=== PATIENT | female | born 1995 | race Caucasian/White ===

== ENCOUNTER 2017-05-06 10:49 | Emergency (ER) | payer BC ==
[2017-05-06 11:00] VITALS: BP 108/72
--- NOTE | 2017-05-06 11:27 | UC ---
Complaint Female HPI - HPI Summary HPI Summary: Pt presents with c/o sudden onset of lleft labial swelling s/p sexual intercourse last night. Pt reports that she had intercourse with her boyfriend last night, no comdom used, pt uses nuva ring, and woke this morning with left labial swelling, non tender. Pt denies pain during intercourse and reports sex was consenual. Pt does report that she shaves her pubic hair as does her boyfriend. - History Of Current Complaint Chief Complaint: UCGU Stated Complaint: PERSONAL Time Seen by Provider: 05/06/17 10:53 Hx Obtained From: Patient Hx Last Menstrual Period: "Like, two weeks ago, I believe." ?: No Onset/Duration: Sudden Onset, Lasting Hours, Still Present Timing: Constant Severity Initially: Mild Aggravating Factor(s): Nothing Alleviating Factor(s): Nothing Associated Signs And Symptoms: Positive: Genital Swelling - Risk Factors Ectopic Risk Factor: Negative Ovarian Torsion Risk Factor: Reproductive Age - Allergies/Home Medications Allergies/Adverse Reactions: Allergies Allergy/AdvReac Type Severity Reaction Status Date / Time No Known Allergies Allergy Verified 05/06/17 10:56 PMH/Surg Hx/FS Hx/Imm Hx Previously Healthy: Yes - Surgical History Surgical History: None - Family History Known Family History: Positive: Cardiac Disease - Social History Occupation: Student - [employer] Lives: Dormitory/Roommates Alcohol Use: Occasionally Substance Use Type: None Smoking Status (MU): Never Smoked Tobacco Have You Smoked in the Last Year: No - Immunization History Most Recent Influenza Vaccination: Not the 2016/2017 Season Review of Systems Constitutional: Negative Skin: Other - swelling Eyes: Negative ENT: Negative Respiratory: Negative Cardiovascular: Negative Gastrointestinal: Negative Genitourinary: Other - labial [id number] Motor: Negative Neurovascular: Negative Musculoskeletal: Negative Neurological: Negative Psychological: Negative Is Patient Immunocompromised?: No All Other Systems Reviewed And Are Negative: Yes Physical Exam Triage Information Reviewed: Yes Appearance: Well-Appearing Vital Signs: Initial Vital Signs Temp 98.6 F 05/06/17 10:54 Pulse 88 05/06/17 10:54 Resp 16 05/06/17 10:54 BP 108/72 05/06/17 10:54 Pulse Ox 100 05/06/17 10:54 Vital Signs Reviewed: Yes Eye Exam: Normal ENT Exam: Normal Dental Exam: Normal Respiratory Exam: Normal Cardiovascular Exam: Normal Abdomen Description: Positive: Other: - outer genitals, mild non erythematous swelling to left labia. No bruising, no lacerations or skin tears. no sores or chancres., no vaginal discahrge, no malodorous discharge Musculoskeletal Exam: Normal Neurological Exam: Normal Psychological Exam: Normal Skin Exam: Other - mild swelling, non erythematous, no bruising to left labia Complaint Female Dx - Differential Dx/Diagnosis Differential Diagnosis/HQI/PQRI: Sexually Transmitted Disease, Other - tinea barabae, skin abrasion, sexual assault Provider Diagnoses: genital swelling, (friction?). skin irritation Discharge - Discharge Plan Condition: Stable Disposition: HOME Patient Education Materials: Contact Dermatitis (ED) Referrals: Non Staff,Doctor [Primary Care Provider] - If Needed Additional Instructions: Diagnosis: L98.9 Disorder of the skin and subcutaneous tissue, unspecified Please monitor for any signs or symptoms of worsening irritation or infection. Please follow up with your PCP or return to clinic as needed.
== END 2017-05-06 11:43 | disposition home or self-care (01) ==
LOC: UCCORT 10:49
DX: N90.89 Other specified noninflammatory disorders of vulva and perineum (principal); N89.8 Other specified noninflammatory disorders of vagina
CPT/HCPCS: 99211; G0463

== ENCOUNTER 2017-06-16 15:05 | Emergency (ER) | payer BC ==
[2017-06-16 15:45] VITALS: BP 115/68
--- NOTE | 2017-06-16 16:21 | UC ---
Headache HPI - HPI Summary HPI Summary: 22 year old female with SHER. HEADACHE "REALLY BAD" FOR 4 DAYS. NAUSEA AND FEELING DIZZY. NO RECALL OF HEAD INJURY. HAVING SINUS AND DENTAL PRESSURE. ALSO. HAS HAD HEADACHE ON AND OFF BUT NOT BAD THIS ONE. PT STATES SHE HAS MIXED UP HER NUVA RING , KEPT IT IN LONGER THAN SHE WAS SUPPOSED TO . UTD with vaccinations. No exposure to meningitis. No neck pain . [ End ] - History Of Current Complaint Chief Complaint: UCHeadache Stated Complaint: HEADACHE Time Seen by Provider: 06/16/17 15:52 Hx Obtained From: Patient Hx Last Menstrual Period: 05/19/17 Onset/Duration: Gradual Onset Onset Of Symptoms: Gradual Initially Headache Was: Initial Pain Scale(0-10)= - 4 Currently Pain Is: Current Pain Scale(0-10)= - 4 Timing: Constant Character: Dull Location of Headache: Diffuse, Frontal Aggravating Factor(s): Exertion, Position Change, Bright Lights Related History: Similar Episode/DX As: - last year - Allergies/Home Medications Allergies/Adverse Reactions: Allergies Allergy/AdvReac Type Severity Reaction Status Date / Time No Known Allergies Allergy Verified 05/06/17 10:56 PMH/Surg Hx/FS Hx/Imm Hx Previously Healthy: Yes - Surgical History Surgical History: None - Family History Known Family History: Positive: None, Cardiac Disease Negative: Seizure Disorder - Social History Occupation: Student Alcohol Use: Occasionally Substance Use Type: None Smoking Status (MU): Never Smoked Tobacco Have You Smoked in the Last Year: No - Immunization History Most Recent Influenza Vaccination: Not the 2016/2017 Season Review of Systems Constitutional: Fatigue Eyes: Photophobia ENT: Nasal Discharge, Sinus Congestion, Sinus Pain/Tenderness Is Patient Immunocompromised?: No All Other Systems Reviewed And Are Negative: Yes Physical Exam Triage Information Reviewed: Yes Appearance: Well-Appearing, Well-Nourished, Pain Distress - mild Vital Signs: Initial Vital Signs Temp 98.8 F 06/16/17 15:38 Pulse 90 06/16/17 15:38 Resp 18 06/16/17 15:38 BP 115/68 06/16/17 15:38 Pulse Ox 99 06/16/17 15:38 Vital Signs Reviewed: Yes Eye Exam: Normal ENT Exam: Normal ENT: Positive: Nasal congestion, TM dull, Sinus tenderness - frontal Left > right and maxillary L > R. Negative: Tonsillar swelling, Tonsillar exudate Dental Exam: Normal Neck exam: Normal Neck: Positive: Supple, Nontender, No Lymphadenopathy, Other: - neg kernig Respiratory Exam: Normal Respiratory: Positive: Chest non-tender, Lungs clear, Normal breath sounds Cardiovascular Exam: Normal Cardiovascular: Positive: RRR Abdominal Exam: Normal Musculoskeletal Exam: Normal Neurological Exam: Normal Psychological Exam: Normal Skin Exam: Normal Headache Course/Dx - Course Course Of Treatment: With the signifcant SHER above the eyes, the maxillary tenderness with tooth pain and previous sinus SHER and sinusitis last year without h/o migraine (she also declined toradol) will treat with bacterial sinusitis and discussed S/S of meningitis (she had neg KernigBrud) and if develops anything like that then go to ED she is aweare and agree - Differential Dx/Diagnosis Differential Diagnosis/HQI/PQRI: Meningitis, Sinus Headache, Tension Headache, Viral Syndrome Provider Diagnoses: Sinusitis with sinus headache Discharge - Discharge Plan Condition: Good Disposition: HOME Prescriptions: Amoxicillin/Clavulanate TAB* [Augmentin TAB 875*] 875 mg PO BID #20 tab Patient Education Materials: Sinusitis (ED), Acute Headache (ED) Referrals: Non Staff,Doctor [Primary Care Provider] - If Needed Additional Instructions: As we discussed please consider starting claritin and flonase as well as your antibiotic. If your symptoms worsen then seek medicl care.
== END 2017-06-16 16:30 | disposition home or self-care (01) ==
LOC: UCCORT 15:05
DX: J32.9 Chronic sinusitis, unspecified (principal); R51 Headache; R53.83 Other fatigue
CPT/HCPCS: 99212; G0463

== ENCOUNTER 2017-11-15 10:01 | Emergency (ER) | payer BC ==
[2017-11-15 10:31] VITALS: BP 103/56
--- NOTE | 2017-11-15 11:31 | UC ---
UC General HPI - HPI Summary HPI Summary: 22 yo female c/o last couple weeks of ongoing dysuria (hesitation, discomfort pre and post urination). Some freq / urgency but not overwhelming. Hx uti's, most recent last year. Hx vaginal yeast infection. Denies change in normal vaginal d/c. No abd pain. No back pain. No fever / chills. No rash. - History of Current Complaint Chief Complaint: UCGU Stated Complaint: URINARY Time Seen by Provider: 11/15/17 11:07 Hx Obtained From: Patient Hx Last Menstrual Period: "like, two or three weeks ago, maybe" Pain Intensity: 0 - Allergy/Home Medications Allergies/Adverse Reactions: Allergies Allergy/AdvReac Type Severity Reaction Status Date / Time No Known Allergies Allergy Verified 11/15/17 10:25 Home Medications: Home Medications Anxiety Medication 1 tab PO DAILY 11/15/17 [History Confirmed 11/15/17] Nuvaring 1 each VAGINAL SEE INSTRUCTIONS 11/15/17 [History Confirmed 11/15/17] PMH/Surg Hx/FS Hx/Imm Hx Previously Healthy: Yes - Surgical History Surgical History: None - Family History Known Family History: Positive: None, Cardiac Disease Negative: Seizure Disorder - Social History Alcohol Use: None Substance Use Type: None Smoking Status (MU): Never Smoked Tobacco Have You Smoked in the Last Year: No - Immunization History Most Recent Influenza Vaccination: Not the 2016/2017 Season Review of Systems Constitutional: Negative Skin: Negative Eyes: Negative ENT: Negative Respiratory: Negative Cardiovascular: Negative Gastrointestinal: Negative Genitourinary: Other - see hpi Motor: Negative Neurovascular: Negative Musculoskeletal: Negative Neurological: Negative Psychological: Negative Is Patient Immunocompromised?: No All Other Systems Reviewed And Are Negative: Yes Physical Exam Triage Information Reviewed: Yes Appearance: Well-Appearing, Well-Nourished Vital Signs: Initial Vital Signs Temp 98.2 F 11/15/17 10:24 Pulse 88 11/15/17 10:24 Resp 16 11/15/17 10:24 BP 103/56 11/15/17 10:24 Pulse Ox 98 11/15/17 10:24 Vital Signs Reviewed: Yes Eye Exam: Normal - grossly normal ENT Exam: Normal - detailed exam not done, grossly normal Neck exam: Normal - no c/o pain. Respiratory Exam: Normal - no tachypnea, no dyspnea. normal resp rate. Cardiovascular Exam: Normal - normal heart rate. No diaphoresis. No visible or reported rash. Abdominal Exam: Normal - Nontender, nondistended. No cvat. Musculoskeletal Exam: Normal - gait steady, moves x 4 ext's Neurological Exam: Normal - grossly nonfocal Psychological Exam: Normal - conversing easily and appropriately Skin Exam: Normal - no visible or reported rash Course/Dx - Course Course Of Treatment: Reviewed urine dip and ucg. Urine cx ordered d/t sx reported. Reviewed need for f/u pcp re 1+ blood. Will tx presumptively, based on previous hx. Rx diflucan as well, as needed for yeast vag d/c. Questions as posed answered to the best of my ability. - Differential Dx - Multi-Symptom Provider Diagnoses: cystitis / urethrititis Discharge - Sign-Out/Discharge Documenting (check all that apply): Discharge - Discharge Plan Condition: Stable Disposition: HOME Prescriptions: DOXYcycline CAP(*) [DOXYcycline 100MG CAP(*)] 100 mg PO BID #14 cap Fluconazole [Diflucan 150 MG (NF)] 150 mg PO DAILY #1 tab Patient Education Materials: Urinary Tract Infection in Women (ED), Hematuria ( ED) Referrals: Non Staff,Doctor [Primary Care Provider] - Additional Instructions: Follow up with your primary care physician, per routine. Recommend recheck upon returning home next month to make sure that the blood has resolved. Please seek medical attention for worse or new problems in the meantime. Drink plenty of water. - Billing Disposition and Condition Condition: STABLE Disposition: HOME
--- NOTE | 2017-11-18 07:15 | UC ---
- Progress Note Progress Note: urine no growth Marcello 11/18/2017 7:15am Discharge - Sign-Out/Discharge Documenting (check all that apply): Discharge - Discharge Plan Condition: Stable Disposition: HOME Prescriptions: DOXYcycline CAP(*) [DOXYcycline 100MG CAP(*)] 100 mg PO BID #14 cap Fluconazole [Diflucan 150 MG (NF)] 150 mg PO DAILY #1 tab Patient Education Materials: Urinary Tract Infection in Women (ED), Hematuria ( ED) Referrals: Non Staff,Doctor [Primary Care Provider] - Additional Instructions: Follow up with your primary care physician, per routine. Recommend recheck upon returning home next month to make sure that the blood has resolved. Please seek medical attention for worse or new problems in the meantime. Drink plenty of water. - Billing Disposition and Condition Condition: STABLE Disposition: HOME
== END 2017-11-15 11:52 | disposition home or self-care (01) ==
LOC: UCCORT 10:01
DX: N30.90 Cystitis, unspecified without hematuria (principal); N34.2 Other urethritis; Z87.440 Personal history of urinary (tract) infections; Z32.02 Encounter for pregnancy test, result negative
CPT/HCPCS: 81003; 84702; 87086; 99212; G0463